=== PATIENT | female | born 2000 | race Caucasian/White ===

== ENCOUNTER 2024-03-14 04:45 | Emergency (ER) | payer BC ==
[~2024-03-14] VITALS: Ht 160 cm; Wt 74.0 kg
[2024-03-14 04:50] VITALS: O2SAT 100
[2024-03-14] MEDS: OXYCODONE HCL/ACETAMINOPHEN 5/325MG TABLET PO ONE (07:21)
[2024-03-14] MEDS: CYCLOBENZAPRINE 10MG TABLET PO ONE (07:21)
[2024-03-14] MEDS: KETOROLAC 30MG/ML VIAL IM ONE (07:21)
[2024-03-14 08:15] VITALS: BP 135/68; PULSE 71; RESP 16; TEMP 98
[2024-03-14 09:41] LABS: CLARITY URINE CLOUDY (CLEAR); COLOR URINE YELLOW (YELLOW); GLUCOSE URINE NEGATIVE (NEGATIVE); KETONES URINE NEGATIVE (NEGATIVE); LEUKOCYTE ESTERASE URINE 2+ (NEGATIVE); NITRITE URINE NEGATIVE (NEGATIVE); OCCULT BLOOD URINE NEGATIVE (NEGATIVE); PH URINE 5.5 (4.5-8.0); PROTEIN URINE NEGATIVE (NEGATIVE)
[2024-03-14 09:52] LABS: BACTERIA URINE 2+; SQUAMOUS EPITHELIAL CELL URINE 1+ /lpf (RARE/1+); YEAST URINE NONE SEEN
[2024-03-14] MEDS ORDERED: IBUP-2029 MT (09:52)
[2024-03-14 10:00] LABS: UCG KIT LOT# 819946; UCG SCREEN NEGATIVE
== END 2024-03-14 09:45 | disposition home or self-care (01) ==
LOC: ER 05:23
DX: M54.50 Low back pain, unspecified (principal)
CPT/HCPCS: 99283; 81003; 81025; 96372; J1885